=== PATIENT | male | born 1960 | race Caucasian/White ===

== ENCOUNTER 2019-06-03 11:31 | Emergency (ER) | payer MEDICAID ==
[~2019-06-03] VITALS: Ht 172.7 cm; Wt 93.8 kg
[~2019-06-03 11:31] MED LIST: FLUO20CA39 PO; LORA-512 PO; NAPR-700 PO; OMEP20TA23 PO; WEL75T PO
[2019-06-03 11:34] VITALS: BP 128/82
[2019-06-03] MEDS ORDERED: ketorolac tromethamine 15mg/ml inj. IM ONE (11:55)
[2019-06-03] MEDS ORDERED: ondansetron 4mg rapidly disintigrating tab PO ONE (11:55)
[2019-06-03] MEDS ORDERED: CYCL-1 PO (12:26)
== END 2019-06-03 12:45 | disposition home or self-care (01) ==
LOC: ER 11:32
DX: R51 Headache (principal); J45.909 Unspecified asthma, uncomplicated; G89.29 Other chronic pain; R11.0 Nausea; M19.90 Unspecified osteoarthritis, unspecified site; Z90.89 Acquired absence of other organs; Z88.5 Allergy status to narcotic agent; Z79.899 Other long term (current) drug therapy
CPT/HCPCS: 93005; 96372; 99283; J1885

== ENCOUNTER 2019-06-10 15:47 | Emergency (ER) | payer MEDICAID ==
[~2019-06-10] VITALS: Ht 172.7 cm; Wt 94.0 kg
[~2019-06-10 15:47] MED LIST changes: +CYCL-1 PO
[2019-06-10 15:50] VITALS: BP 134/83
[2019-06-10] MEDS ORDERED: mupirocin 2% ointment 22GM TP STA (17:56)
[2019-06-10] MEDS ORDERED: MUPI22OI30 TOP (18:00)
== END 2019-06-10 18:18 | disposition home or self-care (01) ==
LOC: ER 15:47
DX: T22.111A Burn of first degree of right forearm, initial encounter (principal); J45.909 Unspecified asthma, uncomplicated; M19.90 Unspecified osteoarthritis, unspecified site; G89.29 Other chronic pain; Z90.89 Acquired absence of other organs; Z88.5 Allergy status to narcotic agent; Z79.899 Other long term (current) drug therapy; X16.XXXA Contact with hot heating appliances, radiators and pipes, initial encounter; Y93.89 Activity, other specified; Y92.89 Other specified places as the place of occurrence of the external cause; Y99.9 Unspecified external cause status
CPT/HCPCS: 99283

== ENCOUNTER 2021-09-06 13:14 | Outpatient (CLI) | payer MEDICAID ==
[2021-09-06 13:44] LABS: BASOPHILS % (AUTO) 0.5 % (0-1); EOSINOPHILS # (AUTO) 0.4 X10'3 (0-0.9); EOSINOPHILS % (AUTO) 6.1 % (0-6); HEMATOCRIT 43.7 % (42.0-52.0); HEMOGLOBIN 14.8 g/dl (14.0-17.9); LYMPHOCYTES # (AUTO) 1.8 X10'3 (1.1-4.8); LYMPHOCYTES % (AUTO) 24.1 % (21-51); MEAN CORPUSCULAR HEMOGLOBIN 32.3 PG (27.0-31.0); MEAN CORPUSCULAR HGB CONC 33.8 g/dL (33.0-36.5); MEAN CORPUSCULAR VOLUME 95.6 FL (78-98); MEAN PLATELET VOLUME 8.1 FL (7.4-10.4); MONOCYTES # (AUTO) 0.8 X10'3 (0-0.9); NEUTROPHILS # (AUTO) 4.3 X10'3 (1.8-7.7); NEUTROPHILS % (AUTO) 58.3 % (42-75); PLATELET COUNT 203 X10'3 (140-440); RED BLOOD COUNT 4.57 X10'6 (4.70-6.10); RED CELL DISTRIBUTION WIDTH 13.4 % (11.5-14.5); WHITE BLOOD COUNT 7.3 X10'3 (4.5-11.0)
[2021-09-06 13:55] LABS: APTT 27 SECONDS (22-32)
[2021-09-06 14:08] LABS: ALANINE AMINOTRANSFERASE 42 U/L (12-78); ALBUMIN 3.5 G/DL (3.4-5.0); ALKALINE PHOSPHATASE 98 IU/L (46-116); ANION GAP 8 (8-16); ASPARTATE AMINO TRANSFERASE 22 U/L (10-37); BILIRUBIN,TOTAL 0.3 MG/DL (0.1-1.0); BLOOD UREA NITROGEN 16 MG/DL (7-18); BUN/CREATININE RATIO 17.8 (5.4-32.0); CALCIUM 8.6 MG/DL (8.5-10.1); CHLORIDE 108 MMOL/L (99-107); GLUCOSE 101 MG/DL (70-104); SODIUM 144 MMOL/L (135-145); TOTAL CARBON DIOXIDE 27.9 MMOL/L (24-32); eGFR 86 ML/MIN
== END 2021-09-06 23:59 | disposition home or self-care (01) ==
LOC: LAB 13:14 → EDSTATUS 09-11 11:00
PROVIDERS: ATTEND Internal Medicine Cardiovascular Disease
DX: Z01.810 Encounter for preprocedural cardiovascular examination (principal); R07.9 Chest pain, unspecified; R06.02 Shortness of breath; Z79.01 Long term (current) use of anticoagulants
CPT/HCPCS: 36415; 71046; 80053; 85025; 85610; 85730

== ENCOUNTER 2021-10-02 08:02 | Day surgery (SDC) | payer MEDICAID ==
[2021-09-27 10:26] LABS: BASOPHILS % (AUTO) 0.5 % (0-1); EOSINOPHILS # (AUTO) 0.4 X10'3 (0-0.9); EOSINOPHILS % (AUTO) 5.3 % (0-6); HEMATOCRIT 46.7 % (42.0-52.0); HEMOGLOBIN 15.9 g/dl (14.0-17.9); LYMPHOCYTES # (AUTO) 1.8 X10'3 (1.1-4.8); LYMPHOCYTES % (AUTO) 24.8 % (21-51); MEAN CORPUSCULAR HEMOGLOBIN 32.6 PG (27.0-31.0); MEAN CORPUSCULAR HGB CONC 34.1 g/dL (33.0-36.5); MEAN CORPUSCULAR VOLUME 95.9 FL (78-98); MEAN PLATELET VOLUME 7.8 FL (7.4-10.4); MONOCYTES # (AUTO) 0.7 X10'3 (0-0.9); MONOCYTES % (AUTO) 10.1 % (2-12); NEUTROPHILS # (AUTO) 4.3 X10'3 (1.8-7.7); NEUTROPHILS % (AUTO) 59.3 % (42-75); PLATELET COUNT 238 X10'3 (140-440); RED BLOOD COUNT 4.87 X10'6 (4.70-6.10); RED CELL DISTRIBUTION WIDTH 13.6 % (11.5-14.5); WHITE BLOOD COUNT 7.3 X10'3 (4.5-11.0)
[2021-09-27 10:37] LABS: APTT 28 SECONDS (22-32)
[2021-09-27 10:55] LABS: ALANINE AMINOTRANSFERASE 54 U/L (12-78); ALBUMIN 3.8 G/DL (3.4-5.0); ALKALINE PHOSPHATASE 103 IU/L (46-116); ANION GAP 10 (8-16); ASPARTATE AMINO TRANSFERASE 23 U/L (10-37); BILIRUBIN,TOTAL 0.5 MG/DL (0.1-1.0); BLOOD UREA NITROGEN 13 MG/DL (7-18); BUN/CREATININE RATIO 12.9 (5.4-32.0); CALCIUM 8.8 MG/DL (8.5-10.1); CHLORIDE 102 MMOL/L (99-107); CREATININE 1.01 MG/DL (0.60-1.10); GLUCOSE 103 MG/DL (70-104); SODIUM 139 MMOL/L (135-145); TOTAL CARBON DIOXIDE 26.9 MMOL/L (24-32); TOTAL PROTEIN 7.6 G/DL (6.4-8.2); eGFR 75 ML/MIN
[2021-10-02] VITALS (11 sets, daily range): BP systolic 99–137; BP diastolic 55–74
[~2021-10-02] VITALS: Ht 172.7 cm; Wt 96.8 kg
[2021-10-02] MEDS ORDERED: nitroGLYCERIN 0.4mg SUBLingual tab SL PRN ×2 (08:20→12:15)
[2021-10-02] MEDS ORDERED: diphenhydrAMINE 25mg capsule PO PRN (08:20)
[2021-10-02] MEDS ORDERED: normal saline 1,000 ML IV SCH (08:20)
[2021-10-02] MEDS ORDERED: LORazepam 0.5 MG tablet PO PRN (08:20)
[2021-10-02] MEDS ORDERED: SILD100T70 PO (10:22)
[2021-10-02] MEDS ORDERED: RISP0.5T65 PO (10:22)
[2021-10-02] MEDS ORDERED: NITR0.4T48 SL (10:22)
[2021-10-02] MEDS ORDERED: CYCL-1 PO (10:22)
[2021-10-02] MEDS ORDERED: PREG50CA64 PO (10:22)
[2021-10-02] MEDS ORDERED: BACL10TA2 PO (10:22)
[2021-10-02] MEDS ORDERED: PRAV40TA3 PO (10:22)
[2021-10-02] MEDS ORDERED: DOXY-224 PO (10:22)
[2021-10-02] MEDS ORDERED: CHOL400T57 PO (10:25)
[2021-10-02] MEDS ORDERED: fentaNYL/PF 50MCG/1 ML 2ML syringe ONE (10:27)
[2021-10-02] MEDS ORDERED: midazolam 1 mg/ML 2ml injection ONE ×2 (10:27→11:14)
[2021-10-02] MEDS ORDERED: LIDOCAINE 1% w/preservative (10 MG/ML) inj. 10mL VIAL ONE (10:27)
[2021-10-02] MEDS ORDERED: iohexol 350 MG/ML 50ML vial IV ONE (10:27)
[2021-10-02] MEDS ORDERED: iohexol 350MG/ML 100ml bottle IV ONE (10:27)
[2021-10-02] MEDS ORDERED: diphenhydrAMINE 50 mg/ml inj ONE (10:46)
[2021-10-02] MEDS ORDERED: normal saline 1000ml 1,000 ML IV SCH (12:10)
[2021-10-02] MEDS ORDERED: ondansetron/PF 4mg/2ml inj IV PRN (12:10)
[2021-10-02] MEDS ORDERED: HYDROcodone/acetaminophen 10/325mg tab PO PRN (12:15)
[2021-10-02] MEDS ORDERED: OXAZEpam 15mg capsule PO PRN (12:15)
[2021-10-02] MEDS ORDERED: HYDROcodone/acetaminophen 5mg/325mg tablet PO PRN (12:15)
[2021-10-02] MEDS ORDERED: proCHLORperazine 10 MG/2 ml inj IV PRN (12:15)
== END 2021-10-02 17:52 | disposition home or self-care (01) ==
LOC: SSTAY O 08:02
PROVIDERS: ATTEND Internal Medicine Cardiovascular Disease
DX: R94.39 Abnormal result of other cardiovascular function study (principal); I25.119 Atherosclerotic heart disease of native coronary artery with unspecified angina pectoris; F31.9 Bipolar disorder, unspecified; G47.33 Obstructive sleep apnea (adult) (pediatric); K21.9 Gastro-esophageal reflux disease without esophagitis; M19.90 Unspecified osteoarthritis, unspecified site; G43.909 Migraine, unspecified, not intractable, without status migrainosus; F17.210 Nicotine dependence, cigarettes, uncomplicated; Z79.01 Long term (current) use of anticoagulants; Z79.899 Other long term (current) drug therapy; Z88.0 Allergy status to penicillin; Z88.5 Allergy status to narcotic agent; Z88.8 Allergy status to other drugs, medicaments and biological substances
CPT/HCPCS: 36415; 80053; 83880; 85025; 85610; 85730; 93458; 99152; 99153; C1760; C1769; J1200; J1644; J2250; J2405; J3010; J7030; Q9967; A4620; A6258

== ENCOUNTER 2021-10-07 08:42 | Emergency (ER) | payer MEDICAID ==
[~2021-10-07] VITALS: Ht 172.7 cm; Wt 96.8 kg
[~2021-10-07 08:42] MED LIST changes: +BACL10TA2 PO; +CHOL400T57 PO; +DOXY-224 PO; -FLUO20CA39 PO; +NITR0.4T48 SL; +PRAV40TA3 PO; +PREG50CA64 PO; +RISP0.5T65 PO; +SILD100T70 PO
[2021-10-07 10:45] LABS: CLARITY,URINE CLEAR (Clear); COLOR,URINE YELLOW (Yellow); GLUCOSE, URINE NEGATIVE (Neg); KETONES,URINE NEGATIVE (Neg); LEUKOCYTE ESTERASE ,URINE NEGATIVE (Neg); NITRITES, URINE NEGATIVE (Neg); OCCULT BLOOD,URINE LARGE (Neg); PROTEIN,URINE 30 mg/dl (Neg); UROBILINOGEN,URINE 0.2 E.U/dL (0.2-1.0)
[2021-10-07] MEDS ORDERED: LIDOcaine 1% 30ml preserv. free vial SQ ONE (10:45)
[2021-10-07 10:50] LABS: UA COLLECTION TYPE VOIDED
[2021-10-07 10:51] LABS: RBC,URINE 20-50 /HPF (0-2); WBC,URINE 0-4 /HPF (0-4)
[2021-10-07 10:52] LABS: BACTERIA,URINE FEW /HPF (Neg); MUCUS STRANDS MODERATE /LPF (Neg); SQUAMOUS EPITHELIAL CELL,UR FEW /LPF (FEW)
--- NOTE | 2021-10-07 11:01 | NUR ---
Back from CT via wheelchair.
[2021-10-07 12:00] LABS: BASOPHILS % (AUTO) 0.5 % (0-1); EOSINOPHILS # (AUTO) 0.5 X10'3 (0-0.9); EOSINOPHILS % (AUTO) 4.9 % (0-6); HEMATOCRIT 44.5 % (42.0-52.0); HEMOGLOBIN 15.4 g/dl (14.0-17.9); LYMPHOCYTES # (AUTO) 1.8 X10'3 (1.1-4.8); LYMPHOCYTES % (AUTO) 19.4 % (21-51); MEAN CORPUSCULAR HEMOGLOBIN 33.2 PG (27.0-31.0); MEAN CORPUSCULAR HGB CONC 34.6 g/dL (33.0-36.5); MONOCYTES # (AUTO) 0.9 X10'3 (0-0.9); NEUTROPHILS # (AUTO) 6.1 X10'3 (1.8-7.7); NEUTROPHILS % (AUTO) 65.2 % (42-75); PLATELET COUNT 233 X10'3 (140-440); RED BLOOD COUNT 4.63 X10'6 (4.70-6.10); RED CELL DISTRIBUTION WIDTH 13.6 % (11.5-14.5); WHITE BLOOD COUNT 9.3 X10'3 (4.5-11.0)
[2021-10-07 12:29] LABS: ALANINE AMINOTRANSFERASE 97 U/L (12-78); ALBUMIN 3.7 G/DL (3.4-5.0); ALBUMIN/GLOBULIN RATIO 0.9 (1.1-1.5); ALKALINE PHOSPHATASE 134 IU/L (46-116); ANION GAP 6 (8-16); ASPARTATE AMINO TRANSFERASE 36 U/L (10-37); BILIRUBIN,TOTAL 0.6 MG/DL (0.1-1.0); BLOOD UREA NITROGEN 12 MG/DL (7-18); BUN/CREATININE RATIO 13.6 (5.4-32.0); CALCIUM 8.7 MG/DL (8.5-10.1); CHLORIDE 104 MMOL/L (99-107); CREATININE 0.88 MG/DL (0.60-1.10); GLUCOSE 100 MG/DL (70-104); POTASSIUM 4.1 MMOL/L (3.5-5.1); SODIUM 139 MMOL/L (135-145); TOTAL CARBON DIOXIDE 28.9 MMOL/L (24-32); TOTAL PROTEIN 7.7 G/DL (6.4-8.2); eGFR 88 ML/MIN
[2021-10-07 13:02] VITALS: BP 124/68
== END 2021-10-07 13:06 | disposition home or self-care (01) ==
LOC: ER 08:43
DX: L76.32 Postprocedural hematoma of skin and subcutaneous tissue following other procedure (principal); R10.31 Right lower quadrant pain; R11.0 Nausea; J45.909 Unspecified asthma, uncomplicated; G89.29 Other chronic pain; M19.90 Unspecified osteoarthritis, unspecified site; Z90.89 Acquired absence of other organs; Z88.5 Allergy status to narcotic agent; Z88.0 Allergy status to penicillin; Z88.8 Allergy status to other drugs, medicaments and biological substances; Z79.899 Other long term (current) drug therapy; Y83.9 Surgical procedure, unspecified as the cause of abnormal reaction of the patient, or of later complication, without mention of misadventure at the time of the procedure
CPT/HCPCS: 36415; 74176; 80053; 81001; 85025; 99284

== ENCOUNTER 2022-12-05 09:38 | Emergency (ER) | payer MEDICAID ==
[~2022-12-05] VITALS: Ht 172.7 cm; Wt 85.0 kg
[2022-12-05] MEDS ORDERED: ketorolac trometh inj. 60 MG/2 ML VIAL IM ONE (11:00)
[2022-12-05] MEDS ORDERED: acetaminophen 325mg tablet PO ONE (11:00)
--- NOTE | 2022-12-05 11:22 | NUR ---
back from ct scan.
[2022-12-05 11:25] LABS: BASOPHILS % (AUTO) 0.6 % (0-1); EOSINOPHILS # (AUTO) 0.3 X10'3 (0-0.9); EOSINOPHILS % (AUTO) 5.1 % (0-6); HEMATOCRIT 44.5 % (42.0-52.0); HEMOGLOBIN 14.9 g/dl (14.0-17.9); LYMPHOCYTES # (AUTO) 1.3 X10'3 (1.1-4.8); MEAN CORPUSCULAR HEMOGLOBIN 32.9 PG (27.0-31.0); MEAN CORPUSCULAR HGB CONC 33.5 g/dL (33.0-36.5); MEAN CORPUSCULAR VOLUME 98.2 FL (78-98); MEAN PLATELET VOLUME 7.7 FL (7.4-10.4); MONOCYTES # (AUTO) 0.6 X10'3 (0-0.9); MONOCYTES % (AUTO) 9.7 % (2-12); NEUTROPHILS % (AUTO) 63.6 % (42-75); PLATELET COUNT 213 X10'3 (140-440); RED BLOOD COUNT 4.53 X10'6 (4.70-6.10); WHITE BLOOD COUNT 6.3 X10'3 (4.5-11.0)
[2022-12-05 11:41] LABS: ALANINE AMINOTRANSFERASE 26 U/L (12-78); ALBUMIN 3.4 G/DL (3.4-5.0); ALKALINE PHOSPHATASE 92 IU/L (46-116); ANION GAP 10 (8-16); ASPARTATE AMINO TRANSFERASE 17 U/L (10-37); BILIRUBIN,TOTAL 0.4 MG/DL (0.1-1.0); BLOOD UREA NITROGEN 17 MG/DL (7-18); BUN/CREATININE RATIO 19.3 (10.0-20.0); CALCIUM 8.9 MG/DL (8.5-10.1); CHLORIDE 103 MMOL/L (99-107); CREATININE 0.88 MG/DL (0.60-1.10); GLUCOSE 100 MG/DL (70-104); LIPASE < 50 U/L (73-393); POTASSIUM 3.5 MMOL/L (3.5-5.1); SODIUM 140 MMOL/L (135-145); TOTAL CARBON DIOXIDE 27.4 MMOL/L (24-32); TOTAL PROTEIN 6.9 G/DL (6.4-8.2); eGFR 88 ML/MIN
[2022-12-05 11:42] VITALS: BP 105/62
[2022-12-05] MEDS ORDERED: HYDR30CR79 TOP (11:59)
[2022-12-05] MEDS ORDERED: LIDO30CR TOP (11:59)
[2022-12-05] MEDS ORDERED: DOCU-171 PO (12:01)
== END 2022-12-05 12:12 | disposition home or self-care (01) ==
LOC: ER 09:40
DX: K64.9 Unspecified hemorrhoids (principal); J45.909 Unspecified asthma, uncomplicated; G89.29 Other chronic pain; M19.90 Unspecified osteoarthritis, unspecified site; Z90.89 Acquired absence of other organs; Z79.899 Other long term (current) drug therapy
CPT/HCPCS: 36415; 74176; 80053; 83690; 84145; 85025; 96372; 99285; J1885

== ENCOUNTER 2023-08-03 10:28 | Emergency (ER) | payer MEDICAID ==
[~2023-08-03] VITALS: Ht 172.7 cm; Wt 77.3 kg
[~2023-08-03 10:28] MED LIST changes: +DOCU-171 PO; +HYDR30CR79 TOP; +LIDO30CR TOP; -PREG50CA64 PO; +PREG50CA65 PO; -RISP0.5T65 PO; +RISP0.5T80 PO
[2023-08-03 10:58] VITALS: BP 105/67; PULSE 89; RESP 18; TEMP 98.2; O2SAT 99
[2023-08-03] MEDS ORDERED: iohexol 300mg/ml 100ml inj. ONE (12:01)
[2023-08-03 12:16] LABS: BASOPHILS % (AUTO) 0.2 % (0-1); EOSINOPHILS # (AUTO) 0.2 X10'3 (0-0.9); EOSINOPHILS % (AUTO) 1.5 % (0-6); HEMOGLOBIN 15.1 g/dl (14.0-17.9); LYMPHOCYTES # (AUTO) 1.2 X10'3 (1.1-4.8); LYMPHOCYTES % (AUTO) 7.9 % (21-51); MEAN CORPUSCULAR HEMOGLOBIN 32.9 PG (27.0-31.0); MEAN CORPUSCULAR HGB CONC 33.6 g/dL (33.0-36.5); MEAN PLATELET VOLUME 8.2 FL (7.4-10.4); MONOCYTES # (AUTO) 1.7 X10'3 (0-0.9); MONOCYTES % (AUTO) 11.5 % (2-12); NEUTROPHILS # (AUTO) 11.8 X10'3 (1.8-7.7); NEUTROPHILS % (AUTO) 78.9 % (42-75); PLATELET COUNT 209 X10'3 (140-440); RED BLOOD COUNT 4.59 X10'6 (4.70-6.10); RED CELL DISTRIBUTION WIDTH 14.3 % (11.5-14.5)
[2023-08-03 12:27] LABS: ALANINE AMINOTRANSFERASE 35 U/L (12-78); ALBUMIN 3.1 G/DL (3.4-5.0); ALBUMIN/GLOBULIN RATIO 0.8 (1.1-1.5); ALKALINE PHOSPHATASE 115 IU/L (46-116); ANION GAP 8 (8-16); ASPARTATE AMINO TRANSFERASE 32 U/L (10-37); BILIRUBIN,TOTAL 1.2 MG/DL (0.1-1.0); BLOOD UREA NITROGEN 14 MG/DL (7-18); BUN/CREATININE RATIO 14.9 (10.0-20.0); CALCIUM 8.4 MG/DL (8.5-10.1); CHLORIDE 101 MMOL/L (99-107); CREATININE 0.94 MG/DL (0.60-1.10); GLUCOSE 89 MG/DL (70-104); POTASSIUM 4.1 MMOL/L (3.5-5.1); SODIUM 138 MMOL/L (135-145); TOTAL CARBON DIOXIDE 28.9 MMOL/L (24-32); TOTAL PROTEIN 7.1 G/DL (6.4-8.2); eCRCL 79 ML/MIN; eGFR 81 ML/MIN
[2023-08-03] MEDS: clindamycin 600mg/D5W 50ml 50 ML IV ONE (12:37)
== END 2023-08-03 15:32 | disposition left against medical advice (07) ==
LOC: ER 10:28
DX: L02.214 Cutaneous abscess of groin (principal); J45.909 Unspecified asthma, uncomplicated; G89.29 Other chronic pain; M54.50 Low back pain, unspecified; Z98.890 Other specified postprocedural states; Z88.5 Allergy status to narcotic agent; Z88.8 Allergy status to other drugs, medicaments and biological substances; Z79.899 Other long term (current) drug therapy; Z79.2 Long term (current) use of antibiotics; Z79.1 Long term (current) use of non-steroidal anti-inflammatories (NSAID)
CPT/HCPCS: 36415; 80053; 83605; 84145; 85025; 87040; 96365; 99284; J3490; Q9967

== ENCOUNTER 2023-12-12 16:58 | Emergency (ER) | payer MEDICAID ==
[~2023-12-12] VITALS: Ht 172.7 cm; Wt 76.2 kg
[2023-12-12 17:02] VITALS: BP 128/70; PULSE 85; TEMP 98.5; O2SAT 99
[2023-12-12] MEDS ORDERED: CLIN-197 PO (19:28)
[2023-12-12] MEDS ORDERED: ketorolac trometh. 30mg/ml inj. IM ONE (19:30)
[2023-12-12] MEDS: CefTRIAXone 1000mg IM Kit (w/lidocaine diluent) IM ONE (19:43)
[2023-12-12 19:44] VITALS: RESP 16
[2023-12-12] MEDS: ketorolac tromethamine 15mg/ml inj. IM ONE (19:44)
== END 2023-12-12 19:58 | disposition home or self-care (01) ==
LOC: ER 16:58
DX: N49.2 Inflammatory disorders of scrotum (principal); J45.909 Unspecified asthma, uncomplicated; M19.90 Unspecified osteoarthritis, unspecified site; G89.29 Other chronic pain; M54.9 Dorsalgia, unspecified; Z98.890 Other specified postprocedural states; Z88.8 Allergy status to other drugs, medicaments and biological substances; Z79.899 Other long term (current) drug therapy; Z79.2 Long term (current) use of antibiotics
CPT/HCPCS: 76870; 96372; 99285; J0696; J1885

== ENCOUNTER 2024-07-19 12:45 | Emergency (ER) | payer MEDICAID ==
[~2024-07-19] VITALS: Ht 172.7 cm; Wt 77.2 kg
[2024-07-19 13:03] VITALS: BP 119/45; PULSE 86; RESP 18; TEMP 97.2; O2SAT 100
== END 2024-07-19 16:08 | disposition left against medical advice (07) ==
LOC: ER 12:45
DX: S31.050A Open bite of lower back and pelvis without penetration into retroperitoneum, initial encounter (principal); Z53.21 Procedure and treatment not carried out due to patient leaving prior to being seen by health care provider; W57.XXXA Bitten or stung by nonvenomous insect and other nonvenomous arthropods, initial encounter; Y93.89 Activity, other specified; Y92.89 Other specified places as the place of occurrence of the external cause; Y99.8 Other external cause status

== ENCOUNTER 2024-10-25 19:37 | Emergency (ER) | payer MEDICAID ==
[~2024-10-25] VITALS: Ht 172.7 cm; Wt 76.1 kg
--- NOTE | 2024-10-25 22:08 | Physician Documentation ---
History of Present Illness ~ Chief Complaint: Abscess Stated Complaint: INFECTION ON WOUND Time Seen by MD: 21:25 Primary Medical Doctor: [facility] [place] HPI 64-year-old male comes via EMS for complaint of a draining abscess on his right flank. Also nauseous meth use today. History took some random antibiotics that he found in his house.. Denies any fever denies any nausea vomiting. Day of Onset: October 25, 2024 Tetanus Within 5 Years: Yes Medication Reconciliation Allergies: Coded Allergies: morphine (Verified Allergy, Severe, 07/19/24) hydrocodone (Verified Allergy, Mild, 07/19/24) codeine (Verified Allergy, Unknown, 07/19/24) Scheduled Baclofen (Baclofen), 1 TAB PO TID, (Reported) Bupropion Hcl* (Wellbutrin*), 150 MG PO DAILY, (Reported) Cholecalciferol (Vitamin D3) (Vitamin D3), Unknown Dose PO DAILY, (Reported) Cyclobenzaprine* (Cyclobenzaprine*), 1 TAB PO HS, (Reported) Docusate Sodium (Dulcolax Stool Softener), 1 CAP PO Q12H Doxycycline Hyclate (Doxycycline Hyclate), 1 CAP PO DAILY, (Reported) Hydrocortisone (Anusol-Hc), 1 APPLIC TOP Q8H Lidocaine/Prilocaine (Lidocaine-Prilocaine Cream), 1 APPLIC TOP TID Loratadine* (Alavert*), 10 MG PO DAILY, (Reported) Naproxen (Naproxen), 500 MG PO PRN, (Reported) Omeprazole Magnesium (Prilosec Otc), 50 MG PO DAILY, (Reported) Pravastatin Sodium (Pravastatin Sodium), 1 TAB PO DAILY, (Reported) Pregabalin (Pregabalin), 1 CAP PO TID, (Reported) Risperidone (Risperidone), 1 TAB PO DAILY, (Reported) Sildenafil Citrate (Sildenafil Citrate), 1 TAB PO DAILY, (Reported) Miscellaneous Medications Nitroglycerin (Nitroglycerin), 1 TAB SL, (Reported) Past Medical History Past Medical History: Asthma, Arthritis, Chronic Pain, Chronic Back Pain Past Surgical History: tonsillectomy Alcohol Use: None Drug Use: none Lives In: Home Occupation: employed, disabled Review of Systems All Other Systems at this time: Reviewed and Negative ROS As stated above in the HPI, otherwise all systems are reviewed and negative. Physical Exam Vital Signs: Temperature: 98.0, Heart Rate: 78, Respiratory Rate: 16, BP: 112/58, Pulse Oximetry: 98, Weight: 76.100 Oxygen Flow Rate: 0 Physical Exam General: Alert, no apparent distress. Chest: No accessory muscle use. Right flank notable for a 3 cm raised eryt hematous region without any notable fluctuance. Cardiovascular: Regular rate and rhythm, no murmurs. Psychiatric: Normal mood and affect. Skin: Normal color, warm and dry. No edema, no ecchymosis. Progress Results/Orders Results/Orders Vital Signs 10/25/24 20:22 Temp 98.0 Pulse 78 Resp 16 B/P (MAP) 112/58 Pulse Ox 98 O2 Flow Rate 0 Medical Decision Making Findings Treat this patient with a p.o. antibiotics at this stage. He does not present has been toxic or critically ill. We are going to recommend him to stop using methamphetamine as well Differential Dx:Considerations: Include: Abscess, Bacteremia, Cellulitis, Erysipelas, Felon, Gas gangrene, Hidrademitis suppurativa, Impetigo, Lymphangitis, Osteromyelitis, Paronychia, Septicemia, Other Departure Disposition: HOME / SELF CARE / HOMELESS Impression: Primary Impression: Abscess Additional Impressions: Cellulitis Methamphetamine abuse Condition: Stable Discharge Instructions: Abscess, Care After, Skin Abscess, [id number] Additional Instructions: Take antibiotics as prescribed and stop using methamphetamines Referrals: NO PRIMARY CARE PROVIDER (PCP) Prescriptions Sulfamethoxazole/Trimethoprim (Septra Ds Tab) 800 Mg/160 Mg Tablet 1 TAB PO Q12H for 10 Days, #20 TAB Prov: MARCELL VILLASENOR NP 10/25/24 Signature Scribe Signature: r Attestation: The note accurately reflects work and decisions made by me.Marcell Villasenor - FANNIE 10/25/24 22:10 MARCELL VILLASENOR NP October 25, 2024 22:08
[2024-10-25] MEDS ORDERED: SULF1TAB45 PO (22:09)
[2024-10-25 22:43] VITALS: BP 115/58; PULSE 76; RESP 18; TEMP 98.6; O2SAT 98
== END 2024-10-25 22:43 | disposition home or self-care (01) ==
LOC: ER 19:37
DX: L02.211 Cutaneous abscess of abdominal wall (principal); L03.311 Cellulitis of abdominal wall; F15.10 Other stimulant abuse, uncomplicated; J45.909 Unspecified asthma, uncomplicated; M19.90 Unspecified osteoarthritis, unspecified site; Z88.5 Allergy status to narcotic agent; Z88.8 Allergy status to other drugs, medicaments and biological substances; Z90.89 Acquired absence of other organs
CPT/HCPCS: 99283